=== PATIENT | male | born 1990 | race Caucasian/White ===

== ENCOUNTER → 2024-08-23 | Outpatient (CLI) | payer OTHER, BC, SELFPAY ==
--- NOTE | 2024-08-23 10:39 | RAD_ITS ---
PROCEDURE: SHOULDER MIN 2 VIEWS REASON FOR EXAM: Sprain of right shoulder joint. TECHNIQUE: Four view right shoulder series. COMPARISON: None. RAD/Shoulder min 2 Views IMPRESSION: Mild right acromioclavicular joint degenerative changes are seen. The right glenohumeral joint demonstrates mild to moderate degenerative changes cortical irregularity, osseous reactive changes, including inferior humeral head osteophytosis. Questionable small degree of joint space narrowing. No acute fracture or dislocation is evident. Reading Location: [id number]
== END | disposition home or self-care (01) ==
PROVIDERS: PCP Family Medicine; Referring Provider Nurse Practitioner Family; Visit Provider Nurse Practitioner Family
DX: S43.401A Unspecified sprain of right shoulder joint, initial encounter (principal)
CPT/HCPCS: 73030